=== PATIENT | female | born 1970 | race Caucasian/White ===

== ENCOUNTER → 2019-11-15 16:00 | Outpatient (CLI) | payer BC, SELFPAY ==
[2014-05-09 03:21] VITALS: BMI 27.3
[2019-11-22 07:07] LABS: Age Gdln ACOG Testing 30-65 (.)
[2019-11-22 16:13] LABS: HPV APTIMA, High Risk Negative (Negative); HPV Reflexed? YES, CHARGE PATIENT
== END ==
PROVIDERS: PCP Family Medicine; Visit Provider Obstetrics & Gynecology
DX: Z12.4 Encounter for screening for malignant neoplasm of cervix (principal)
CPT/HCPCS: 87624; 88175; G0145

== ENCOUNTER → 2019-11-23 14:18 | Outpatient (CLI) | payer BC, SELFPAY ==
--- NOTE | 2019-11-23 14:21 | BI_ITS ---
MAMMOGRAPHY - BILATERAL SCREENING 3-D TOMOSYNTHESIS REASON FOR EXAM: Female, 49 years old. Routine screening PERTINENT HISTORY: BILAT SCREENING - NO FAM HX - NO PREV SURG''S - CURRENT HRT CREAM X 1 WEEK - PREV EXAM [place] 2014. TECHNIQUE: 2-D mammograms and 3-D Tomosynthesis of the breast (s) were performed. CAD was performed. COMPARISON: 2014 FINDINGS: The breast composition is composed of scattered fibroglandular density. Scattered benign calcifications are seen. No dense spiculated masses or suspicious microcalcifications are identified. No architectural distortion is identified. There is no skin thickening or retraction. There has been no significant change since the prior study. BI/SCREEN MAMM (CAD) W/MARICRUZ BILAT IMPRESSION: No mammographic signs of malignancy. Routine yearly mammograms recommended. ASSESSMENT CATEGORY: BIRADS Category 1: Negative. A letter regarding these results will be sent to the patient by the facility within 30 days. FOLLOW UP RECOMMENDATION: Yearly follow up mammogram recommended. (A) Approximately 10% of breast cancers are not detected by mammography. A normal mammogram should not delay biopsy of a clinically suspicious abnormality. Electronically Signed: Lanre Bonner MD at 21:08 EDT , Service support ,
== END ==
PROVIDERS: Referring Provider Obstetrics & Gynecology; Visit Provider Obstetrics & Gynecology
DX: Z12.31 Encounter for screening mammogram for malignant neoplasm of breast (principal)
CPT/HCPCS: 77063; 77067

== ENCOUNTER → 2020-02-01 16:44 | Outpatient (CLI) | payer BC, SELFPAY ==
--- NOTE | 2020-02-01 16:51 | MRI_ITS ---
STUDY: MRI LEFT ANKLE WITHOUT CONTRAST REASON FOR EXAM: Female, 49 years old. LEFT plantar fascitis vs. tear, calcaneal stress fx, tarsal tunnel syndrome, left heel pain, NKI TECHNIQUE: Standardized fat and water weighted pulse sequences were obtained in all 3 orthogonal planes. COMPARISON: None. FINDINGS: Normal subcutis adipose space. Normal posterior tibialis tendon. Normal flexor digitorum longus tendon. Normal flexor hallucis longus tendon. Normal peroneus longus and brevis tendons. Normal tibialis anterior tendon. Normal extensor hallucis longus tendon. Normal extensor digitorum longus tendons. Normal Achilles tendon and teno-osseous insertion. High-grade degeneration with thickening and increased signal as well as a small interstitial tear is present in the central cord of the plantar fascia at the midline insertion on the plantar aspect of the calcaneus. A small calcaneal plantar spur is also present. Mild to moderate edema is present in the plantar aspect of the posterior process and body of the calcaneus directly above the plantar fascia. The remaining aspects of the plantar fascia are normal. No bursitis is present. No fracture line is seen. Mild subcutaneous edema is present around the ankle joint. Normal intrinsic muscles of the rearfoot. Normal distal tibiofibular syndesmotic ligamentous complex. There is a complete rupture of the anterior talofibular ligament (ATFL). Normal subtalar ligaments and sinus tarsi. Normal deltoid ligamentous complexes. Normal plantar calcaneonavicular (spring) ligament. Normal tibiotalar articulation. Normal talar dome. Normal subtalar articulations. Normal talonavicular articulation. Normal calcaneocuboid articulation. Normal navicular-cuneiform articulations. MRI/Lower Ext Joint Only (Routine) IMPRESSION: 1. High-grade degeneration with thickening and increased signal as well as a small interstitial tear is present in the central cord of the plantar fascia at the midline insertion on the plantar aspect of the calcaneus. 2. A small calcaneal plantar spur is also present. 3. Mild to moderate edema is present in the plantar aspect of the posterior process and body of the calcaneus directly above the plantar fascia. The remaining aspects of the plantar fascia are normal. 4. No bursitis is present. No fracture line is seen. Electronically Signed: Schuyler Ellington MD at 20:00 EDT , Service support ,
== END ==
PROVIDERS: Referring Provider Podiatrist; Visit Provider Podiatrist
DX: M72.2 Plantar fascial fibromatosis (principal); M84.375S Stress fracture, left foot, sequela; G57.52 Tarsal tunnel syndrome, left lower limb
CPT/HCPCS: 73721

== ENCOUNTER → 2020-05-21 14:17 | Outpatient (CLI) | payer BC, SELFPAY ==
[2014-05-09 03:21] VITALS: BMI 27.3
[2020-05-21 15:21] LABS: Absolute Lymphocyte Count 1.42 X10^3/uL (0.83-4.51); Absolute Neutrophil Count 2.6 X10^3/uL (2.0-7.7); Basophil# 0.03 X10^3/uL; Basophil% 0.7 % (0-1); Eosinophil# 0.11 X10^3/uL; Eosinophils% 2.5 % (0-5); Hemoglobin 12.9 g/dL (12.0-15.0); Lymphocyte # 1.42 X10^3/ul (4.0); Lymphocyte % 32.1 % (19-41); Mean Corp Hgb Conc 32.3 g/dL (32-36); Mean Corpuscular Hgb 29.1 pg (27.0-32.0); Mean Corpuscular Volume 90.3 fL (81-99); Mean Platelet Vol. 9.9 fl (6.2-12.0); Monocyte# 0.26 X10^3/uL; Monocyte% 5.9 % (0-10); NRBC Flagged by Analyzer 0 % (0-5); Neutrophil % 58.6 % (47-70); Platelet Count 233 K/mm3 (150-450); RBC Distribution Width CV 11.9 % (11.6-14.6); RBC Distribution Width SD 39.2 fl (35.1-43.9); Red Blood Count 4.43 M/mm3 (4.2-5.4); White Blood Count 4.4 K/mm3 (4.4-11.0)
[2020-05-21 16:04] LABS: ALB/GLOB Ratio 1.1 RATIO (0.9-2.4); AST(SGOT) 15 U/L (15-37); Alanine Aminotransfer ALT/SGPT 38 U/L (13-56); Albumin, Serum 3.7 g/dL (3.2-5.0); Alkaline Phosphatase 87 U/L (45-117); Anion Gap 3 (5-15); BUN 17 mg/dL (7-18); BUN/Creat Ratio 20.5 RATIO (10-20); Calcium,Total 8.9 mg/dL (8.5-10.1); Chloride 107 mmol/L (98-107); Creatinine, Serum 0.83 mg/dL (0.55-1.02); EST Glomerular Filtration Rate 77 mL/min (>60); Est Glom Filt Rate - Afr Amer 93 mL/min (>60); Globulin 3.4 g/dL (2.2-4.2); Glucose 102 mg/dL (74-106); Potassium 3.5 mmol/L (3.5-5.1); Protein, Total 7.1 g/dL (6.4-8.2); Sodium Level 139 mmol/L (136-145)
== END ==
PROVIDERS: PCP Student in an Organized Health Care Education/Training Program; Referring Provider Student in an Organized Health Care Education/Training Program; Visit Provider Family Medicine
DX: Z01.818 Encounter for other preprocedural examination (principal)
CPT/HCPCS: 36415; 80053; 85025

== ENCOUNTER 2020-06-13 05:58 | Day surgery (SDC) | payer BC, SELFPAY ==
[2020-06-13 06:31] VITALS: BP 128/76; PULSE 77; RESP 16; TEMP 36.5; O2SAT 97; BMI 31.4
[2020-06-13] MEDS: Lactated Ringers 1,000 ML 80 ML IV (06:38)
[2020-06-13] MEDS: Bupivacaine Mpf 0.5% 30 ML VIAL (07:50)
[2020-06-13] MEDS: Lidocaine 1% (30 ml sdv) 30 ML Vial (07:50)
--- NOTE | 2020-06-13 08:07 | PCM.OPRPT ---
Problem List (1) Plantar fasciitis, left Status: Chronic (2) Left foot pain Status: Chronic Report of Operation Date of Procedure: 06/13/20 Pre-Operative Diagnosis: Recalcitrant left plantar fasciitis Post-Operative Diagnosis: Recalcitrant left plantar fasciitis Surgery/Procedure Performed:: Open instep plantar fasciotomy, left foot Description of Surgical Findings:: Hemostasis: Well-padded pneumatic left ankle tourniquet, 250 mmHg, 12 minutes Materials: 4-0 Vicryl, 4-0 nylon Specimens: None Complications: None The patient tolerated the procedure and anesthesia well. She was transported to the PACU with vital signs stable vascular status intact to left lower extremity. She will be discharged home upon continued stability. She was advised to maintain a nonweightbearing status. To ice and elevate for pain inflammation management. Postoperative orders were entered electronically. electric range preparer: none - Surgeon: Janeen Rivera DPM. Filter Press Supervisor: Yashira Shah: PGY3 Type of Anesthesia:: Local - Preoperative: One-to-one mixture of 1% lidocaine plain and 0.5% Marcaine plain administered in typical tibial nerve block fashion, 8 cc Postoperative: One-to-one mixture of 1% lidocaine plain and 0.5% Marcaine plain administered in typical local infiltrative manner to left foot, 8 cc, MAC Specimen's removed: None Estimated Blood Loss (mL): <40mL Description of Procedure: Indications: This 49-year-old female with significant past medical history of hypertension has recalcitrant left heel pain. This has been chronic and she has tried the following conservative measures: activity modification, CAM Walker boot immobilization, prefabricated and custom orthotics, physical therapy exercises, stretching splint, and advanced shockwave therapy. Her pain is affecting her ability to complete daily activities and work tasks. 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 Her neurovascular status is intact. X-rays do not demonstrate any fractures or dislocations. MRI confirmed that she does have thickening and plantar fasciitis of the central band of the plantar fascial band of the left foot with some partial tearing as well. There is also a small calcaneal exostosis with adjacent bone edema. There is no evidence of confirmed stress fracture or reaction or other pathology. Her pain on palpation is to the plantar central heel. No heel compression pain or pain along the Achilles was noted. Negative Tinel's to tibial nerve percussion was also noted. There were also no paresthesias on palpation to the medial calcaneal nerve branch. The benefits, risk, complications, indications, surgical plan, and anticipated healing time and management were discussed in detail with the patient. She understands and elects to proceed with surgery at this time. No guarantees were made. She understands risk and complications include but are not limited to the following: pain, swelling, scarring, need for further surgery, blood clot, allergic reaction, arthritis, delayed or nonhealing, infection, recurrence, loss of limb, function, or life. I answered all of her questions. She also understands she is electing to proceed forward with a surgery during the COVID-19 pandemic and there is an inherent risk of being in a healthcare facility. She understands strict precautions are being taken to prevent exposure and it is also noted that she has already been vaccinated. Her preoperative history and physical exam and clearance were reviewed from Dr. Mendez. There were no gross abnormalities noted with her diagnostic data including CBC, CMP. Signed surgical consent and the surgical limb were signed. I answered all her questions. Procedure in detail: The patient was transported to the operating room via cart and placed on the operating room table in the supine position. Final verification of patient, surgery, limb designation was performed via the timeout procedure. IV anesthesia was initiated by the anesthesia team. Local anesthesia was administered by the podiatry team. No antibiotic was indicated or administered. A well-padded pneumatic left ankle tourniquet was placed. The left lower extremity was prepped and draped in the usual aseptic manner. An Esmarch bandage was used to exsanguinate the limb and surgery in the following manner: Attention was first directed to the plantar left foot approximately 1-1/2 cm distal to the plantar heel pad in which a 1 and half centimeter linear incision was made in a transverse manner in line with the resting skin tension lines. This was made through the skin and care was taken to identify, protect, and retract all neurovascular structures at this time and throughout the remainder of surgery. Minimal electrocauterization was performed for superficial venous structures. Blunt dissection was performed down through the adipose layer until the plantar fascial band was directly visualized and accentuated with the windless mechanism. This was directly visualized and released with a 15 blade scalpel. A segment was removed to prevent regrowth. The central and medial bands were released. The most medial aspect of the medial band which is an extension of the abductor hallucis muscle belly was also carefully released utilizing a tenotomy scissor. Saline irrigation was performed and the tourniquet was deflated at this time. No pulsatile bleeding was noted and brisk capillary refill time was noted to all digits of the left foot. There was no necrosis, infection, or abnormal tissue visualized. The postoperative injection was administered as noted. Minimal deep suture was performed with one 4-0 Vicryl stitch. The skin was also reapproximated with 4-0 nylon utilizing horizontal mattress technique. A postoperative dressing consisting of Betadine soaked Adaptic, gauze, Kerlix was applied. An additional posterior mold splint was applied in a well-padded manner in a neutral position. After Procedure: The patient was transported to the PACU with vital signs stable and vascular status intact to the left lower extremity. She will maintain a nonweightbearing status with crutches and a knee roller. She was advised to keep her splint and dressing clean, dry, and intact until follow-up [facility]. She was advised to ice and elevate for pain and inflammation management. This patient does not have a history of blood clots however her immediate family member does therefore DVT prophylaxis was discussed and recommended. She will take two baby aspirin's daily and she also has SCD compression pumps to wear bilaterally at home as well. This durable medical equipment was dispensed today and she was advised on proper use. Her postoperative orders were entered electronically. Janeen Rivera DPM, [facility] Grafts/Implants Used: none - Complications None - Admit VTE Documentation VTE Present on Admission: No VTE Mechan Device Prophylaxis: SCD's VTE Pharm Prophylaxis ordered?: Yes
--- NOTE | 2020-06-13 08:09 | DCINST_ITS ---
Discharge Diet: No Restrictions Discharge Activity: May Shower - with shower bag Ice area for (Minutes): 15 - each hour behind knee if needed for pain Weight Bearing Status: No weight bearing - use crutches and knee roller Keep extremity elevated above heart level: Left Leg Call your doctor if your incision/area has: Continuous Slow Oozing, Sudden Increased Bleeding, Increased Pain/ Swelling, Increased Redness, Foul Smelling Discharge, Swelling at the incision site Call your doctor if you observe: Fever of 101 or Higher, Calf discomfort, Uncontrolled pain Cleanse incision/area with: Keep Dressing Clean & Dry Additional Instructions: Use compression devices to bilateral lower legs while awake as tolerated. Take 160 mg aspirin daily. Allergies/Adverse Reactions: Allergies shellfish derived Allergy (Verified 06/06/20 10:55) Anaphylaxis Medications to take at Discharge Calcium Carbonate [Calcium] 500 mg PO DAILY 06/06/20 Famotidine [Pepcid] 20 mg PO DAILY 06/06/20 Melatonin 1 mg SL QHS 06/06/20 Multivitamins,Therapeutic [Multivitamin] 1 tab PO DAILY 06/06/20 Turmeric Root Extract [Turmeric] 500 mg PO DAILY 06/06/20 Hydrocodone/Acetaminophen [Hydrocodon-Acetaminophen 5-325] 1 - 2 tab PO Q6H PRN PRN 7 Days #28 tab 06/12/20 Primary Care Physician: Darwin Wilson DO [Primary Care Provider] - Test Results: Test results from this visit will be discussed in further detail at your follow- up appointment, if applicable. Please Follow Up With: Janeen Rivera DPM When: [facility]. Call [phone].
[2020-06-13 08:12] VITALS: BP 115/77; BP 128/76; PULSE 72; RESP 16; TEMP 36.2; O2SAT 95
[2020-06-13 08:15] VITALS: BP 116/68; BP 128/76; PULSE 71; RESP 16; O2SAT 95
[2020-06-13 08:30] VITALS: BP 108/74; BP 128/76; PULSE 64; RESP 16; O2SAT 96
[2020-06-13 08:45] VITALS: BP 104/63; BP 128/76; PULSE 61; RESP 16; TEMP 36.3; O2SAT 97
[2020-06-13 09:20] VITALS: BP 128/76
== END 2020-06-13 09:34 | disposition home or self-care (01) ==
LOC: SDC 05:58 → AC 05:58
PROVIDERS: PCP Student in an Organized Health Care Education/Training Program; Referring Provider Podiatrist; Visit Provider Podiatrist
PROC: (CPT 28008; principal; 2020-06-13 07:15)
DX: M72.2 Plantar fascial fibromatosis (principal); I10 Essential (primary) hypertension; M89.9 Disorder of bone, unspecified
CPT/HCPCS: 01470; 28008; 87426; C9803; J7120; J2405

== ENCOUNTER 2020-08-07 09:30 | Outpatient (RCR) | payer BC, SELFPAY ==
--- NOTE | 2020-07-29 07:50 | HP.PTEVAL_ITS ---
Patient's Visit Information FAITH TRUONG is a 50 year old F referred to Physical Therapy by Dr. Janeen Rivera DPM with a diagnosis of open instep plantar fasciotomy DOS: 06/13/20. Date of Evaluation: 07/25/20 Physical Therapist: Edwardo Brown DPT - Visit Plan Frequency: 2-3x /Week Duration: 4-6 Weeks Plan: Start with stretching G/S complex, initiate walking program as tolerated (start light), add in functional strengthening of BLEs as tolerated. May use modalities as needed. - Subjective Pt. is here today for her initial evaluation with diagnosis of open instep plantar fasciotomy DOS: 06/13/20. Pt. reports overall that her plantar fascia is doing much better, but now she is having more pain on the dorsum of her foot. Pt. was in a boot for a few months prior to surgery and just got out of the CAM boot last week. She did start work yesterday. 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 is working 3 days per week 8-12 hour days. She has overall minimal pain in her heel and plantar fascia area, the only region she is complaining about is the dorsum of her foot. Pt. denies N/T in her L foot. Pt. has been doing ROM exercises at home with good success. She is hopeful to get back to walking and possibly running without limitations. - Pain L foot Pain Intensity (Out of 10): 2 Pain Intensity Range: 0, 4 Comment: on the dorsum of foot L plantar fascia Pain Intensity (Out of 10): 0 Pain Intensity Range: 0, 2 - Objective POSTURE: Pt. has good posture in stance, normal wt. shifting. Normal arch height. PALPATION: pt. has great healing incision, no signs of infection. Minimal scar tissue noted at fascial incision. Pt. does have increased pain at 1st, 2nd cuniformes. No plantar pain. NEURO: normal throughout BLEs. Normal achilles DTR biltaterally. ROM: L foot: DF 8deg, PF 48deg, INV 17deg, EVR 8deg. R foot: DF 17deg, PF 54deg, INV 19deg, EVR 14deg. Pt. has normal knee ROM bilaterally. MMT: Pt. has 4+/5 throughout L foot/ankle. R foot 5/5 and ankle. 5/5 throughout B knee musculature, 4+/5 bilateral hips throughout. GAIT: Pt. ambulates well. Pt. has normal heel off and good rocker moment with fore/mid foot. No antalgic pattern noted. STAIRS: Normal, slight early heel off with decending during L loaded phase. - Goals Goal 1:: LTG: Pt. to be I with HEP for walking progression, and ankle/foot strengthening/stretching. Goal Time Frame: 4-6 Weeks Goal 2:: LTG: Pt. to be able to complete full work day without increase in L foot pain. Goal Time Frame: 4-6 Weeks Goal 3:: STG: Pt. to have increased DF of L ankle to 18 deg to reduce stress applied to plantar fascia with all standing, walking and stairs. Goal Time Frame: 2-4 Weeks Goal 4:: LTG: pt. to have no pain throughout L foot with all daily activities. Goal Time Frame: 4-6 Weeks Goal 5:: LTG: Pt. to have 5/5 strength throughout L foot/ankle. Goal Time Frame: 4-6 Weeks - Rehabilitation Potential Physical Therapy Diagnosis: Pt. has signs and symptoms consistent with instep plantar fasciotomy. Pt. is doing very well with this recovery, but is having some dorsal pain near 1st/2nd cuneiforms. Pt. would benefit from PT to progress back into ankle/foot strengthenign and progressive functional strengthening/walking program. Rehabilitation Potential: Excellent - Anticipated Interventions Patient/Client Instruction: Educate patient on: Condition, Plan of Care, Risk Factors, Benefits of Fitness Program For the Purpose of:: To prevent re-injury, To improve ability to perform tasks related to life management, To improve tolerance to ADL's Therapeutic Exercise to Include: Strength training, Power training, Endurance training, Agility training, Body mechanics, Postural training, Flexibilty training, Gait and locomotor training, Passive ROM, Active ROM For the Purpose of:: To decrease pain, To increase ROM, To improve nutrient delivery to tissue, To increase oxygenation perfusion, To improve muscle performance and motor function, To improve performance and independence with ADL's, To improve health of tissue, To decrease soft tissue restriction, To increase flexibility/ROM, To improve endurance, To improve balance, To improve safety with gait Manual Therapy Techniques to Include: Mobilization, Soft tissue mobilization For the Purpose of:: To decrease pain, To decrease swelling/inflammation, To increase ROM Thank you for the opportunity to evaluate your patient. For Medicare and Medicare HMO plans, please review the plan of care and approve it. It will need to be FAXED BACK to us at [phone] for Medicare purposes. For Medicare only, by signing this I certify the plan of care. Please let me know if there are questions or concerns regarding this plan of care. Physician Signature: Date:
--- NOTE | 2020-10-06 16:59 | HP.PT.NRP ---
FAITH TRUONG was seen in my office for initial evaluation on 07/25/20. The following Plan of Care was established for this patient: Initial Frequency: 2-3x /Week Initial Duration: 4-6 Weeks Patient/Client Instruction: Educate patient on: Condition, Plan of Care, Risk Factors, Benefits of Fitness Program For the Purpose of:: To prevent re-injury, To improve ability to perform tasks related to life management, To improve tolerance to ADL's Therapeutic Exercise to Include: Strength training, Power training, Endurance training, Agility training, Body mechanics, Postural training, Flexibilty training, Gait and locomotor training, Passive ROM, Active ROM For the Purpose of:: To decrease pain, To increase ROM, To improve nutrient delivery to tissue, To increase oxygenation perfusion, To improve muscle performance and motor function, To improve performance and independence with ADL's, To improve health of tissue, To decrease soft tissue restriction, To increase flexibility/ROM, To improve endurance, To improve balance, To improve safety with gait Manual Therapy Techniques to Include: Mobilization, Soft tissue mobilization For the Purpose of:: To decrease pain, To decrease swelling/inflammation, To increase ROM This patient was last seen in our office 08/07/20. Pertinent comments regarding their Physical therapy will appear below: Pt. was seen in PT for her plantar fasciotomy. She was overall doing well. At our last visit she was going on vacation and then following back up with physician to determine if further PT was warranted. Pt. has not been seen in 2 months and will be DC from PT at this point in time. At this point I will be discontinuing this patient from physical therapy. I would be happy to see this patient again in the future if found appropriate by the physician. Thank you! Edwardo Brown, BUDDYT
== END 2020-08-07 19:00 | disposition home or self-care (01) ==
LOC: PT 09:30
PROVIDERS: PCP Student in an Organized Health Care Education/Training Program; Referring Provider Podiatrist; Visit Provider Podiatrist
DX: Z47.89 Encounter for other orthopedic aftercare (principal)
CPT/HCPCS: 97110; 97161

== ENCOUNTER → 2021-02-24 13:23 | Outpatient (CLI) | payer BC, SELFPAY ==
--- NOTE | 2021-02-24 13:25 | BI_ITS ---
MAMMOGRAPHY - BILATERAL SCREENING REASON FOR EXAM: Female, 50 years old. Routine annual screening examination. PERTINENT HISTORY: Non-contributory. TECHNIQUE: Digital bilateral breast maricruz (3D mammographic acquisition) in the CC and MLO projections. 2-D mediolateral oblique (MLO) and craniocaudad (CC) views of both breasts were obtained. CAD: Full Field Digital Mammography with Computer Added Detection was performed. COMPARISON: Comparison is made with prior study dated 11/23/2019. FINDINGS: Breast Composition: There are scattered areas of fibroglandular density. There are no dominant masses or suspicious calcifications. Stable asymmetry of breast tissue where more breast tissue is seen in the upper outer quadrant of the left breast as compared to the right side No other significant abnormalities are identified. There has been no significant change since the prior study. BI/SCRN MAMM (CAD)W/MARICRUZ BILAT IMPRESSION: Stable bilateral screening mammogram. Yearly follow-up mammogram recommended. (A) ASSESSMENT CATEGORY: BIRADS Category 2: Benign. A letter regarding these results will be sent to the patient by the facility within 30 days. Approximately 10% of breast cancers are not detected by mammography. A normal mammogram should not delay biopsy of a clinically suspicious abnormality. [id number] Electronically Signed: Omid Watts MD at 11:11 EDT , Service support ,
== END ==
PROVIDERS: PCP Student in an Organized Health Care Education/Training Program; Referring Provider Obstetrics & Gynecology; Visit Provider Obstetrics & Gynecology
DX: Z12.31 Encounter for screening mammogram for malignant neoplasm of breast (principal)
CPT/HCPCS: 77063; 77067

== ENCOUNTER → 2023-04-12 | Outpatient (CLI) | payer BC, SELFPAY ==
--- NOTE | 2023-04-12 15:38 | BI_ITS ---
MAMMOGRAPHY - BILATERAL SCREENING REASON FOR EXAM: Female, 52 years old. Routine annual screening examination. PERTINENT HISTORY: Non-contributory. TECHNIQUE: Digital bilateral breast maricruz (3D mammographic acquisition) in the CC and MLO projections. 2-D mediolateral oblique (MLO) and craniocaudad (CC) views of both breasts were obtained. CAD: Full Field Digital Mammography with Computer Added Detection was performed. COMPARISON: Comparison is made with prior study February 24, 2021 and November 23, 2019. FINDINGS: Breast Composition: There are scattered areas of fibroglandular density. There are no dominant masses or suspicious calcifications. Stable asymmetry of breast tissue with more breast tissue is seen in the upper-outer quadrant of the left breast as compared to the right side. No other significant abnormalities are identified. There has been no significant change since the prior study. BI/SCRN MAMM (CAD)W/MARICRUZ BILAT IMPRESSION: Stable bilateral screening mammogram. Yearly follow-up mammogram recommended. (A) ASSESSMENT CATEGORY: BIRADS Category 2: Benign. A letter regarding these results will be sent to the patient by the facility within 30 days. Approximately 10% of breast cancers are not detected by mammography. A normal mammogram should not delay biopsy of a clinically suspicious abnormality. [id number] Electronically Signed: Omid Watts MD at 9:12 EST ,
== END | disposition home or self-care (01) ==
LOC: OPBI 15:36
PROVIDERS: PCP Student in an Organized Health Care Education/Training Program; Referring Provider Student in an Organized Health Care Education/Training Program; Visit Provider Student in an Organized Health Care Education/Training Program
DX: Z12.31 Encounter for screening mammogram for malignant neoplasm of breast (principal)
CPT/HCPCS: 77063; 77067

== ENCOUNTER → 2023-06-22 | Outpatient (CLI) | payer BC, SELFPAY ==
--- NOTE | 2023-06-22 07:40 | ASPS_PTH ---
PATHOLOGY RESULTS PATIENT: FAITH TRUONG LOC: [facility]#:[id number] AGE/SX: 52/F ROOM: RE06/22/[address]: Dr. Doug Bhagat MD : 1970 BED: DIS: 06/22/2023 SPEC #: [id number] RECD: 06/22/23 12:05 STATUS: CRISTINA WINSTON #: [id number] AVNI: 06/22/23 07:[address]: Doug Bhagat DEPT: CYTOLOGY RECD BY: Madeleine Mosley ENTERED: 06/22/23 12:05 SP TYPE: ASPIRATION OTHR DR: Dr. Darwin Wilson, DO Tissues: Thyroid gland, NOS Procedures: Special Stain Group II Cytology Other HEADER OPERATION: Fine needle aspiration left thyroid PRE-OP DIAGNOSIS: Thyroid nodule TISSUE SUBMITTED: Left thyroid 8 slides DIAGNOSIS CYTOLOGY Left thyroid, fine needle aspiration (smears): Atypical follicular cells of undetermined significance ([place] Category III). Adequate for evaluation. See comment. JO-ANN:vik 06/23/2023 COMMENT Correlation with clinical, radiologic findings and appropriate follow up are necessary. The [place] System for thyroid diagnostic categorization was used in the evaluation of this case. Per recommendations and a clinician-approved plan (a call was made to the referring doctor about the recommendation), genomic testing (Afirma) has been submitted. Results will be reported as an addendum and faxed to clinician. Case has been reviewed in consultation with Dr. Harrison who concurs with the above diagnosis. IDC:AM CYTOLOGY STUDY Slides are reviewed. CYTOLOGY GROSS Received are eight smears labeled with the patient's name and designated per the requisition as left thyroid. Submitted for staining. / vik 06/22/2023 TC:5 CPT: 30882 ADDENDUM ADDENDUM 07/08/2023 09:55 AFIRMA RESULTS REPORT RESULTS INTERPRETATION: The result of this 1.0 cm [place] III nodule A is Afirma GSC benign, which suggests a low risk of cancer of approximately 4%. Please see complete report in e-chart or EMR
[2023-06-22 09:01] LABS: Free T3 3.2 pg/mL (2.18-3.98); T4 Free Direct 1.06 ng/dL (0.76-1.46); Thyroid Stim Hormone (TSH) 1.03 uIU/mL (0.358-3.74)
== END | disposition home or self-care (01) ==
PROVIDERS: PCP Student in an Organized Health Care Education/Training Program; Referring Provider Surgery; Visit Provider Surgery
DX: E04.1 Nontoxic single thyroid nodule (principal)
CPT/HCPCS: 36415; 84439; 84443; 84481; 88161; 88313

== ENCOUNTER 2023-09-15 05:45 | Day surgery (SDC) | payer BC, SELFPAY ==
--- NOTE | 2023-09-05 06:45 | EKG12_ITS ---
Test Reason : PRE OP Blood Pressure : / mmHG Vent. Rate : 060 BPM Atrial Rate : 060 BPM P-R Int : 128 ms QRS Dur : 076 ms QT Int : 396 ms P-R-T Axes : 056 045 057 degrees QTc Int : 396 ms Normal sinus rhythm with sinus arrhythmia Normal ECG Confirmed by CARMEN ORELLANA, DEANDRE ([id number]), desk editor THEODORE MESSINA ([id number]) on 09/05/2023 11:32:06 AM Referred By: Doug Bhagat Confirmed By:DEANDRE MORALES MD
[2023-09-05 14:29] LABS: Hematocrit 39.3 % (37-47); Hemoglobin 12.9 g/dL (12.0-15.0); Mean Corp Hgb Conc 32.8 g/dL (32-36); Mean Corpuscular Hgb 29.9 pg (27.0-32.0); Mean Corpuscular Volume 91.2 fL (81-99); Mean Platelet Vol. 10.3 fl (6.2-12.0); Platelet Count 193 K/mm3 (150-450); RBC Distribution Width CV 11.5 % (11.6-14.6); RBC Distribution Width SD 38.8 fl (35.1-43.9); Red Blood Count 4.31 M/mm3 (4.2-5.4)
[2023-09-05 14:57] LABS: Anion Gap 4 (5-15); BUN 13 mg/dL (7-18); BUN/Creat Ratio 15.5 RATIO (10-20); Calcium,Total 8.8 mg/dL (8.5-10.1); Chloride 104 mmol/L (98-107); Creatinine, Serum 0.84 mg/dL (0.55-1.02); EST Glomerular Filtration Rate 75 mL/min (>60); Est Glom Filt Rate - Afr Amer 91 mL/min (>60); Glucose 134 mg/dL (74-106); Phosphorus 3.6 mg/dL (2.5-4.9); Potassium 3.7 mmol/L (3.5-5.1); Sodium Level 138 mmol/L (136-145)
--- NOTE | 2023-09-15 | IMM_PTH ---
PATIENT: FAITH TRUONG LOC: [facility] [place] U#:[id number] AGE/SX: 53/F ROOM: RE09/15/[address]: Dr. Doug Bhagat MD : 1970 BED: DIS: 09/15/2023 SPEC #: [id number] RECD: 09/20/23 11:44 STATUS: CRISTINA REQ #: [id number] AVNI: 09/15/23 00:[address]: Doug Bhagat DEPT: IMMUNOHISTOCHEMISTRY RECD BY: Aj Garcia ENTERED: 09/20/23 11:44 SP TYPE: IMMUNO OTHR DR: Dr. Darwin Wilson, Tissues: Thyroid gland, NOS Procedures: HBME (initial) CD56 (add) CK19 (add) GAL-3 (add) PHYSICIAN & INSTITUTION [facility] [place] [phone] SPECIMEN INFORMATION: Tissue Source: Left lobe of thyroid Clinical Info: Left thyroid nodule Specimen Number: [id number] CPT code: 01827,26223w0 METHODOLOGY: Deparaffinized sections of prefer/formalin-fixed tissue or PAP/DQ stained slides are incubated with monoclonal/polyclonal antibodies/oligonucleotide probes. Localization is made via biotin free immunoperoxidase method. Appropriate controls are performed and reacted as expected. Results on target cell population are indicated in the following table: RESULTS: ANTIBODY / CLONE RESULT Block 7 HBME1 (HBME-1) positive, focal CK19 (A53-B/A2.26) positive GAL3 (9C4) positive CD56 (123C3.D5) positive, focal These tests were developed and their performance characteristics determined by [facility]. They may not have been cleared or approved by the U.S. Food and Drug Administration. The FDA has determined that such clearance or approval is not necessary. The above immunohistochemical/dualISH markers are ordered and reviewed by the Pathologist. INTERPRETATION: Left thyroid, lobectomy: Consistent with papillary carcinoma. AM/mr 09/21/2023
[2023-09-15 06:11] VITALS: BP 144/78; PULSE 69; RESP 16; TEMP 36.6; O2SAT 100; BMI 28.3
[2023-09-15] MEDS: Lactated Ringers 1,000 ML 15 ML IV (06:20)
--- NOTE | 2023-09-15 06:52 | PCM.HP.BLA ---
History and Physical Date of Admission: 09/15/23 isit Reasons: Discuss thyroid results Chief Complaint: discuss thyroid results Is patient in pain?: No Allergies shellfish derived Allergy (Verified 08/03/23 11:10) Anaphylaxis Medications calcium carbonate 500 mg calcium (1,250 mg) tablet 500 mg PO DAILY 06/06/20 [History Confirmed 08/03/23] famotidine 20 mg tablet 20 mg PO DAILY 06/06/20 [History Confirmed 08/03/23] multivitamin 1 tab PO DAILY 06/06/20 [History Confirmed 08/03/23] [facility] Medical History History of LEEP (loop electrosurgical excision procedure) of cervix complicating Surgical History (Updated 06/22/23 @ 07:35 by Nicol Lincoln) S/P foot surgery, left S/P LEEP S/P wisdom tooth extraction Family History (Updated 05/26/23 @ 14:15 by Renu Ga) Father Sarcoma In Abdomen A-fibMother Alzheimer disease Social History (Updated 05/26/23 @ 14:17 by Renu Ga) number of children: 2 Smoking Status: Never smoker Electronic Cigarette Use: not used second hand exposure: No alcohol intake: current alcohol intake frequency: a few times a month substance use type: does not use juana/mosque: Presbyterian seatbelt use: always do you feel safe at home: Yes Female Reproductive History Menstrual Ab induced: 0 Ab spontaneous: 0 Ectopics: 0 HPI HPI HPI: 53-year-old female returns to discuss thyroid nodule. I have most recently seen her June 22, 2023 and at that time she was felt to have a TI-RADS 5 highly suspicious lesion inferior left pole of the thyroid. We pursued an ultrasound-guided fine-needle aspiration. Cytology suggested atypical follicular cells of undetermined significance Supply category 3. There was felt to be adequate specimen for evaluation. Afirma testing was obtained and is felt to suggest risk of malignancy approximately 4%. As of June 22, 2023 TSH was 1.03 and free T4 was 1.06 and free T3 was 3.2 all of this normal. My previous notes reflect the following Visit Reasons: THYROID NODULE Chief Complaint: thryoid nodule [employer] Required: No Is patient in pain?: No Allergies shellfish derived Allergy (Verified 06/22/23 07:36) Anaphylaxis Medications calcium carbonate 500 mg calcium (1,250 mg) tablet 500 mg PO DAILY 06/06/20 [History Confirmed 06/22/23] famotidine 20 mg tablet 20 mg PO DAILY 06/06/20 [History Confirmed 06/22/23] multivitamin 1 tab PO DAILY 06/06/20 [History Confirmed 06/22/23] [facility] Medical History History of LEEP (loop electrosurgical excision procedure) of cervix complicating Surgical History (Updated 06/22/23 @ 07:35 by Nicol Lincoln) S/P foot surgery, left S/P LEEP S/P wisdom tooth extraction Family History (Updated 05/26/23 @ 14:15 by Renu Ga) Father Sarcoma In Abdomen A-fibMother Alzheimer disease Social History (Updated 05/26/23 @ 14:17 by Renu Ga) number of children: 2 Smoking Status: Never smoker Electronic Cigarette Use: not used second hand exposure: No alcohol intake: current alcohol intake frequency: a few times a month substance use type: does not use juana/mosque: Presbyterian seatbelt use: always do you feel safe at home: Yes Female Reproductive History Menstrual Ab induced: 0 Ab spontaneous: 0 Ectopics: 0 HPI HPI HPI: 52-year-old female is being referred for surgical consultation regarding her thyroid issue by Dr. Darwin Wilson. A written copy my surgical consult and recommendations will return to her. At [facility] on April 15, 2023 she had a thyroid ultrasound. Enlargement had been noted on clinical examination. The right lobe measured maximal 4.5 cm. There is felt to be a 1 x 0.9 x 0.8 cm isoechoic nodule inferior left pole not well-visualized on a previous examination of March 11, 2020 because of its low position. Currently graded as a TI-RADS 5 highly suspicious. Multiple other nodules noted. The radiologist states that the nodule documented as #1 is the suspicious nodule however on the images provided there is a nodule labeled #1 and a nodule labeled #3 with the nodule avid #3 is seemingly the nodule that is larger and of more interest. Patient does not recall recently having had thyroid function test. She has no particular head neck symptoms. No hoarseness no choking no pressure sensation. She has never had radiation treatment to the head neck. It is of note that her mother had thyroid nodules and remotely had a thyroidectomy. She is also had an aunt with thyroid nodules. Her current ultrasound was simply in follow-up of her previous 1. She is intolerant to shellfish ROS General General: No weight change, appetite, fatigue, colon cancer, breast cancer or weakness HEENT HEENT: No difficulty swallowing, eye injury, eye surgery, swollen glands or hoarseness Endo Endocrine: No thyroid disease, diabetes mellitus, thyroid cancer, Hair loss, heat intolerance or cold intolerance Skin Skin: No rash or changing moles Breast Breast: No left breast lump, right breast lump, nipple discharge, breast pain, abnormal mammogram, abnormal US or breast enlargement Musc Musculoskeletal: No back problems, arthritis, rheumatoid arthritis, gout or joint pain Cardio Cardiovascular: No murmur, pacemaker, heart disease, atrial fibrillation, high blood pressure, heart attack, heart stent, palpitations, shortness of breat with exertion or chest pain Psych Psychiatric: No depression, anxiety or hearing voices Resp Respiratory: No shortness of breath, No sleep apnea, No cough, No COPD, No asthma, No emphysema and No wheezing Gastro Gastrointestinal: No abdominal pain, No nausea or vomiting, No diarrhea, No constipation, No blood in stool, Yes acid reflux, No hemorrhoids, No ulcers, No gallbladder problem and No black,tarry stools Clive Hematologic: No blood thinners, No blood disorders, No bleeding, No anemia and No blood clots Neuro Neurologic: No system reviewed and no additional complaints, except as documented, No as per HPI, No abnormal gait, No abnormal hearing, No abnormal movements, No abnormal speech, No behavioral changes, No burning sensations, No confusion, No convulsions, No disequilibrium, No dizziness, No localized weakness, No frequent falls, No headache(s), No lack of coordination, No loss of vision, No memory loss, No numbness, No other visual disturbances, No radicular pain, No restless legs, No sensory deficit, No syncope, No tingling, No tremor(s), No weakness and No other Office Procedures Fine Needle Aspiration Provider Documentation Details: Ultrasound-guided fine-needle aspiration inferior left thyroid nodule Timeout informed consent was obtained. The patient was taken the procedure room placed upon the table. The neck was generously extended. Prepped with chlorhexidine. Ultrasound was performed demonstrating the nodule with some microcalcifications there was slight cystic component of mostly solid in the inferior left lobe. Measuring approximately a centimeter maximum dimension. Under ultrasound guidance 1% lidocaine was used as local anesthetic. 1 cc was used. Then I advanced a 25-gauge needle into the nodule and a rapid [id number]-[id number]-[id number] motion was performed. Specimen was obtained and smeared on slides. I did another pass with a 25-gauge needle. I then performed 2 passes with a 23-gauge needle. All specimens smeared out and treated with fixative. I then did 1/5 pass with a 25-gauge needle and placed that in Afirma on hold. She tolerated the procedure well. Had some slight dizziness for which we paused the procedure and placed in Trendelenburg position but she remained stable throughout. Spot Band-Aid applied. She was Given activity wound care instructions. Doug Bhagat M.D., F.A.C.S. FNA [id number] Thyroid Procedure Time Out Time Out Informed consent given: Yes Consent signed: Yes Time out checklist: patient, procedure, site marked/identified, positioning of patient, supplies available, allergies confirmed and team agrees on procedure Time out staff in room: Yes Time out verified: Yes Time out date: 06/22/23 Time out time: 07:40 Assessment and Plan Assessment and Plan (1) Left thyroid nodule: Status: Acute Plan: Successful ultrasound-guided final aspiration inferior left lobe thyroid nodule. Some microcalcifications present. Margins somewhat vague. Afirma has been sent on hold. She will be notified of cytology results as soon as they become available. Further follow-up then as pertinent. I appreciate the opportunity of assisting with her surgical care. Copy: Dr. Darwin Bhagat M.D., F.A.C.S. Exam Const General: cooperative, healthy appearing and comfortable Nutritional Appearance: average body habitus [facility] Head: normal to inspection Eyes General: appearance normal, both eyes and all related structures Neck Neck: normal visual inspection Resp Effort & Inspection: normal respiratory effort Auscultation: clear to auscultation bilaterally Cardio Rate: regular rate Rhythm: regular rhythm GI Inspection: normal to inspection Palpation: soft Musc Cervical Spine: normal cervical lordosis Skin General: no rashes or lesions noted Neuro General: patient alert, patient awake and patient oriented x3 Psych Appearance: grossly normal Assessment and Plan Assessment and Plan (1) Left thyroid nodule: Status: Acute Plan: This was a voqy-zt-ydip consultative appointment with the patient today. We reviewed her thyroid ultrasound with a TI-RADS 5 rating inferior pole left thyroid nodule which is vague and challenging to image. Microcalcifications and irregular margin present. We reviewed the cytology which was Supply category 3 with atypical cells identified. We additionally reviewed the Afirma test suggesting approximately 4% malignancy risk. In detail I discussed benefit and risks of observation versus surgical intervention. I have explained that the material submitted in Afirma could indeed represent the nodule or that material potentially could have come from more normal thyroid area. I do have concerns that the ultrasound and the cytology were both suspicious. We discussed potential for conservative measures with follow-up thyroid ultrasound at 1 year. We discussed potential referral to endocrinology Dr. Reno Armas for endocrinology opinion. We additionally discussed a left thyroid lobectomy with the gamut of surgical risks including specifically injury to recurrent laryngeal nerve and parathyroids. She is aware that intraoperatively frozen section will not be able to guide me with a definitive diagnosis and pending final pathology there would be a potential to have to return for completion of the right thyroid. It is hoped however that just with a left thyroid lobectomy that supplemental medication would not be required. She has had an opportunity to ask and have questions answered. She is interested in trying to obtain a definitive diagnosis at this time. We therefore will schedule and anticipate proceeding with a left thyroid lobectomy. Copy:DO Doug Victor M.D., F.A.C.S. I have examined the patient and the H&P has been reviewed. There are no clinical changes since date of exam. Doug Bhagat M.D., F.A.C.S.
--- NOTE | 2023-09-15 06:53 | DCINST_ITS ---
Discharge Instructions Procedure General Surgery Diet Discharge Diet: Light diet - advance as tolerated (if you have questions about your diet instructions, please talk to you doctor.) Activity Discharge Activity: May Not Drive (for 3-5 days or while taking narcotic pain medicine.) May shower in (days): 1 Lifting Restrictions: 10 pounds Dressing / Incision Call your doctor if your incision/area has: Continuous Slow Oozing, Sudden Increased Bleeding, Increased Pain/ Swelling, Increased Redness and Foul Smelling Discharge Call your doctor if you observe: Fever of 101 or Higher Suture Line Care: Avoid Pulling/Pushing and Avoid Pinching/Bending Additional Dressing/Incision Instructions:: You may remove your dressing tomorrow. Do not allow clothing to irritate the incision and if need be apply an oversized Band-Aid or gauze and tape to help protect it. Follow Up Care Please Follow Up With: Doug Bhagat MD When: Call [phone] to make an appointment to be seen in about 10 days. Test Results: Test results from this visit will be discussed in further detail at your follow- up appointment, if applicable. Discharge Plan Admission Attending Provider: Doug Bhagat Primary Care Provider: Darwin Wilson Instructions Print Language: Slovenian Discharge Orders/Prescriptions Prescriptions: No Action multivitamin 1 TABLET tablet 1 tab PO DAILY famotidine 20 MG tablet 20 mg PO DAILY calcium carbonate 500 MG tablet 500 mg PO DAILY diphenhydramine HCl [Allergy Medication] 25 mg capsule 25 mg PO PRN chlorpheniramine maleate [Aller-Chlor] 4 mg tablet 4 mg PO Q6H PRN (Reason: allergy symptoms) Referrals / Follow Up: Darwin Wilson DO [Primary Care Provider] - Disposition Disposition (needs filled in before D/C Order can be placed): Home, Self Care
--- NOTE | 2023-09-15 07:30 | THYROID_PTH ---
PATIENT: FAITH TRUONG [place] [facility] [place][id number] AGE/SX: 53/F ROOM: RE09/15/[address]: Dr. Doug Bhagat MD : 1970 BED: DIS: 09/15/2023 SPEC #: [id number] RECD: 09/15/23 09:18 STATUS: CRISTINA REParviz #: [id number] AVNI: 09/15/23 07:[address]: Doug Bhagat DEPT: SURGICAL PATHOLOGY RECD BY: Katia Figueroa ENTERED: 09/15/23 12:26 SP TYPE: THYROID OTHR DR: Dr. Darwin Wilson DO Tissues: Thyroid gland, NOS Procedures: Surgery Specimen Level V HEADER OPERATION: Left thyroid lobectomy PRE-OP DIAGNOSIS: Left thyroid nodule TISSUE SUBMITTED: Left lobe of the thyroid, suture baez the anterior superior lobe of the thyroid MICROSCOPIC DIAGNOSIS Left lobe of thyroid, lobectomy: Colloid nodules with focal adenomatous change. 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 Chronic inflammation. Benign parathyroid tissue (4.0 x 2.0mm). See synoptic report below. See comment. AM/mr 09/19/2023 COMMENT THYROID CANCER SUMMARY Procedure: Left lobectomy Tumor Focality: Unifocal Tumor Site: left lobe Tumor Size: 6.0 x 5.0 x 4.0mm Histologic Type: Papillary carcinoma Margins: Free of carcinoma Angioinvasion: Not identified Lymphatic Invasion: Not identified Extrathyroidal Extension: Not identified Regional Lymph Nodes: None found Ancillary Studies: RF24- Additional Pathologic Findings: Colloid nodules with adenomatous change and chronic inflammation Clinical History: Thyroid nodule Preferences made to the patient's previous left thyroid fine needle aspiration (C24-91) and which atypical follicular cells are undetermined significant were identified. PATHOLOGIC STAGE: T1 Nx Mx The above summary is in compliance with [employer] [place] [employer] (CAP) Cancer Protocols Checklist and [place] Joint Committee on Cancer (AJCC), Staging Manual, 8th Ed. A single focus of incidental papillary carcinoma is identified. The carcinoma is present at the 3mm from its closest (anterior) margin and is completely surrounded by normal thyroidal tissue. Immunohistochemistry ([id number]) supports the above diagnosis. MICROSCOPIC DESCRIPTION Slides are reviewed. GROSS DESCRIPTION Received in fixative is one container labeled with the patient's name and designated Left lobe of thyroid. The specimen consists of a thyroid lobectomy specimen measuring 5.0 x 4.0 x 1.5cm. The specimen is inked as follows: anterior surface- blue, posterior surface- black, ischemic resection margin- yellow. Serial sections reveal two valdez colloidy nodules measuring 0.5 and 0.7cm in greatest dimension and lower portion of thyroid lobe and one valdez white irregular solid nodule measuring 0.5cm in greatest dimension and the lower to mid portion of the thyroid lobe. The entire specimen is submitted in 12 cassettes as follows: 1-containing most superior portion and 11 containing most inferior portion, 12 containing isthmic margin of resection, 7&8- valdez white solid nodule, 10&11- colloidy nodule. JO-ANN/ 09/16/2023 TC:0 CPT:42248
--- NOTE | 2023-09-15 07:30 | THYROID_PTH ---
PATIENT: FAITH TRUONG [place]: [facility] [place][id number] AGE/SX: 53/F ROOM: RE09/15/[address]: Dr. Doug Bhagat MD : 1970 BED: DIS: 09/15/2023 SPEC #: [id number] RECD: 09/15/23 09:18 STATUS: CRISTINA REParviz #: [id number] AVNI: 09/15/23 07:[address]: Doug Bhagat DEPT: SURGICAL PATHOLOGY RECD BY: Katia Figueroa ENTERED: 09/15/23 12:26 SP TYPE: THYROID OTHR DR: Dr. Darwin Wilson DO Tissues: Thyroid gland, NOS Procedures: Surgery Specimen Level V HEADER OPERATION: Left thyroid lobectomy PRE-OP DIAGNOSIS: Left thyroid nodule TISSUE SUBMITTED: Left lobe of the thyroid, suture baez the anterior superior lobe of the thyroid MICROSCOPIC DIAGNOSIS Left lobe of thyroid, lobectomy: Colloid nodules with focal adenomatous change. Incidental papillary carcinoma (6mm in greatest dimension). Chronic inflammation. Benign parathyroid tissue (4.0 x 2.0mm). See synoptic report below. See comment. AM/mr 09/19/2023 COMMENT THYROID CANCER SUMMARY Procedure: Left lobectomy Tumor Focality: Unifocal Tumor Site: left lobe Tumor Size: 6.0 x 5.0 x 4.0mm Histologic Type: Papillary carcinoma Margins: Free of carcinoma Angioinvasion: Not identified Lymphatic Invasion: Not identified Extrathyroidal Extension: Not identified Regional Lymph Nodes: None found Ancillary Studies: RF24- Additional Pathologic Findings: Colloid nodules with adenomatous change and chronic inflammation Clinical History: Thyroid nodule Preferences made to the patient's previous left thyroid fine needle aspiration (C24-91) and which atypical follicular cells are undetermined significant were identified. PATHOLOGIC STAGE: T1 Nx Mx The above summary is in compliance with [employer] [place] [employer] (CAP) Cancer Protocols Checklist and [place] Joint Committee on Cancer (AJCC), Staging Manual, 8th Ed. A single focus of incidental papillary carcinoma is identified. The carcinoma is present at the 3mm from its closest (anterior) margin and is completely surrounded by normal thyroidal tissue. Immunohistochemistry ([id number]) supports the above diagnosis. MICROSCOPIC DESCRIPTION Slides are reviewed. GROSS DESCRIPTION Received in fixative is one container labeled with the patient's name and designated Left lobe of thyroid. The specimen consists of a thyroid lobectomy specimen measuring 5.0 x 4.0 x 1.5cm. The specimen is inked as follows: anterior surface- blue, posterior surface- black, ischemic resection margin- yellow. Serial sections reveal two valdez colloidy nodules measuring 0.5 and 0.7cm in greatest dimension and lower portion of thyroid lobe and one valdez white irregular solid nodule measuring 0.5cm in greatest dimension and the lower to mid portion of the thyroid lobe. The entire specimen is submitted in 12 cassettes as follows: 1-containing most superior portion and 11 containing most inferior portion, 12 containing isthmic margin of resection, 7&8- valdez white solid nodule, 10&11- colloidy nodule. JO-ANN/ 09/16/2023 TC:0 CPT:06463
[2023-09-15] MEDS: Bupivacaine Mpf 0.5% 30 ML VIAL (08:41)
--- NOTE | 2023-09-15 08:49 | OP.PCM_ITS ---
Report of Operation Date of Procedure: 09/15/23 Pre-Operative Diagnosis: Left thyroid nodule Post-Operative Diagnosis: Same Surgery/Procedure Performed:: Left thyroid lobectomy with isthmusectomy Description of Surgical Findings:: Timeout informed consent was obtained. 53-year-old female was taken to the operating placed on the table underwent general endotracheal intubation anesthesia. Clean procedure no antibiotics required. Head was gently extended head of bed slightly elevated. The neck was sterilely prepped and draped. A transverse suprasternal incision was created electrocautery dissection performed down through the subcutaneous tissue platysma was incised displaceable flaps were raised and strap muscles were incised vertically very small portion strap muscle on the left were incised transversely access was gained to the left lobe of the thyroid initially I performed dissection the inferior pole inferior parathyroid was densely adherent to the gland and had to be meticulously dissected free and preserved. Then I kathleen attention to the superior pole which extended significantly superiorly and tedious blunt dissection harmonic scalpel dissection was performed as the gland was carefully freed. Upon then rotating s lightly the superior parathyroid also densely adherent to the gland was identified. This was also dissected free small fragment remaining with the gland. Upon rotating the gland anteriorly the course of the recurrent laryngeal nerve was identified and carefully protected. Hemostasis throughout was obtained with electrocautery and harmonic scalpel. Was able to nicely elevate the left lobe transected the limit of barely transected the lobe off the anterior surface of the trachea and then took the isthmus over to the right lobe of the thyroid. Inspection revealed inferior nodule no penetration through the lobe. Suture was placed in the anterior superior aspect of the left lobe of the thyroid. A silk suture was placed in the remnant medial lobe of the right lobe of the thyroid. Palpation failed to reveal any suspicious nodules or adenopathy. The left bed was inspected was noted to be quite hemostatic piece of fibrillar was placed for further assistance. The strap muscle was repaired on the left with a [id number]-[id number] suture of 3-0 Vicryl. Strap muscles were approximated with the same. Skin edges were approximated with interrupted 5-0 Vicryl subdermal stitches. Dermabond was applied. The jimmie-incisional area was anesthetized with 20 cc of 0.5% Marcaine. Telfa OpSite dressings applied. Sponge and instrument and needle counts were reported the surgeon to be correct. Specimens left lobe of the thyroid plus isthmus. Drains none. Blood loss minimal. Doug Bhagat M.D., F.A.C.S. Surgeon: Doug Bhagat Type of Anesthesia: General and Local Anesthesiologist: Renee Jefferson
[2023-09-15 09:06] VITALS: BP 116/67; BP 144/78; PULSE 80; RESP 16; TEMP 36.3; O2SAT 98
[2023-09-15 09:10] VITALS: BP 121/73; BP 144/78; PULSE 86; RESP 16; O2SAT 97
[2023-09-15 09:15] VITALS: BP 120/68; BP 144/78; PULSE 75; RESP 16; O2SAT 98
[2023-09-15 09:30] VITALS: BP 126/68; BP 144/78; PULSE 75; RESP 16; TEMP 36.3; O2SAT 99
[2023-09-15] MEDS: HYDROcodone Bitartrate/Apap 5/325 Tablet PO (10:02)
[2023-09-15 11:25] VITALS: BP 144/78; BP 148/86; PULSE 88; RESP 16; TEMP 36.6; O2SAT 98
== END 2023-09-15 11:27 | disposition home or self-care (01) ==
LOC: SDC 05:45 → AC 05:46
PROVIDERS: PCP Student in an Organized Health Care Education/Training Program; Referring Provider Surgery; Visit Provider Surgery
PROC: (CPT 60220; principal; 2023-09-15 07:15)
DX: E04.1 Nontoxic single thyroid nodule (principal)
CPT/HCPCS: 60220; 00320; 36415; 80048; 84100; 85027; 88307; 88341; 88342; 93005; A4648; J7120; J2405

== ENCOUNTER → 2023-10-20 | Outpatient (CLI) | payer BC, SELFPAY ==
[2023-10-20 15:26] LABS: Calcium,Total 9.4 mg/dL (8.5-10.1); Free T3 2.3 pg/mL (2.18-3.98); T4 Free Direct 0.91 ng/dL (0.76-1.46); Thyroid Stim Hormone (TSH) 2.67 uIU/mL (0.358-3.74)
== END | disposition home or self-care (01) ==
LOC: PAVLAB 14:18
PROVIDERS: PCP Student in an Organized Health Care Education/Training Program; Visit Provider Surgery
DX: E89.0 Postprocedural hypothyroidism (principal); C73 Malignant neoplasm of thyroid gland
CPT/HCPCS: 36415; 82310; 84439; 84443; 84481

== ENCOUNTER → 2025-03-20 | Outpatient (CLI) | payer BC, SELFPAY | END | disposition home or self-care (01) | LOC: LABSPEC 16:27 | PROVIDERS: Visit Provider Nurse Practitioner Women's Health | DX: Z12.4 Encounter for screening for malignant neoplasm of cervix (principal) | CPT/HCPCS: 87624; 88175; G0145 ==